=== PATIENT | female | born 1955 | race Caucasian/White ===

== ENCOUNTER → 2016-11-13 | Outpatient (CLI) | payer OTHER ==
[~2016-11-13] MED LIST: ARMO60TA PO; CINN500C7 PO; DICL75 PO; OMEG5CAP PO; PROZ20CA11 PO; TAB-TAB PO
== END ==
LOC: OLAB 09:41
PROVIDERS: ATTEND Family Medicine
DX: E03.9 Hypothyroidism, unspecified (principal)
CPT/HCPCS: 84443

== ENCOUNTER → 2017-04-16 | Outpatient (CLI) | payer OTHER ==
[~2017-04-16] MED LIST changes: +CINN500C13 PO; +DICL75TA PO; +FISH1200 PO; +LEVO137T2 PO; +MULTTAB25 PO
[2017-04-16 11:15] LABS: AUTOMATED NEUTROPHIL # 4.3 TH/MM3 (1.8-7.7); BASOPHIL # 0.1 TH/MM3 (0-0.2); EOSINOPHIL # 0.4 TH/MM3 (0-0.4); EOSINOPHIL % 5.1 % (0.0-4.0); HEMATOCRIT 38.9 % (35.0-46.0); HEMO FLAGS DIFF FINAL; LYMPH % 30.3 % (9.0-44.0); LYMPHOCYTE # 2.3 TH/MM3 (1.0-4.8); MEAN CELL VOLUME 83.7 FL (80.0-100.0); MEAN CORPUSCULAR HEMOGLOBIN 27.5 PG (27.0-34.0); MEAN CORPUSCULAR HGB CONC 32.8 % (32.0-36.0); MONO % 5.8 % (0.0-8.0); NEUT % 57.8 % (16.0-70.0); PLATELET COUNT 299 TH/MM3 (150-450); RED BLOOD COUNT 4.65 MIL/MM3 (4.00-5.30); RED CELL DISTRIBUTION WIDTH 15.2 % (11.6-17.2); WHITE BLOOD COUNT 7.5 TH/MM3 (4.0-11.0)
--- NOTE | 2017-04-16 11:17 | RADRPT ---
EXAM DATE/TIME: 04/16/2017 11:08 [facility] COMPARISON: CHEST PA & LAT, September 17, 2013, 13:38. INDICATIONS : Evaluate for pneumonia, pneumothorax, and communicable disease. Preoperative exam for acromioplasty. MEDICAL HISTORY : None. SURGICAL HISTORY : Right rotator cuff repair. ENCOUNTER: Initial ACUITY: 1 day PAIN SCORE: 0/10 LOCATION: Bilateral chest FINDINGS: PA and lateral views of the chest demonstrate the lungs to be symmetrically aerated without evidence of mass, infiltrate or effusion. The cardiomediastinal contours are unremarkable. Osseous structure s are intact. CONCLUSION: No acute disease. No significant change has occurred. Travis Pena MD on April 16, 2017 at 11:15 Board Certified Radiologist. This report was verified electronically.
[2017-04-16 11:24] LABS: PROTHROMBIN TIME - PATIENT 10.7 SEC (9.8-11.6)
[2017-04-16 11:35] LABS: BACTERIA, URINE OCC /hpf; BLOOD, URINE NEG (NEG); COMMENT (UR) CULT NOT INDICATED; CULTURE IF INDICATED CULT NOT INDICATED; GLUCOSE,URINE NEG (NEG); HYALINE CAST, URINE 2 /lpf (RARE); KETONE, URINE NEG (NEG); MUCUS URINE FEW /lpf (OCC); NITRITE,URINE NEG (NEG); PH, URINE 5.5 (5.0-8.5); SQUAMOUS EPITHELIAL CELL URINE 2 /hpf (0-5); URINE COLOR YELLOW (YELLW/STRAW)
== END ==
LOC: CPRE 09:54
PROVIDERS: ATTEND Orthopaedic Surgery
DX: Z01.812 Encounter for preprocedural laboratory examination (principal); Z01.811 Encounter for preprocedural respiratory examination; M75.121 Complete rotator cuff tear or rupture of right shoulder, not specified as traumatic
CPT/HCPCS: 36415; 71020; 81001; 85025; 85610

== ENCOUNTER → 2017-04-16 | Outpatient (CLI) | payer OTHER ==
[2017-04-16 11:44] LABS: ANION GAP 7 MEQ/L (5-15); AST (GOT) 17 U/L (15-37); BICARBONATE 25.7 MEQ/L (21.0-32.0); BLOOD UREA NITROGEN 28 MG/DL (7-18); CHLORIDE 104 MEQ/L (98-107); GLOMERULAR FILTRATION RATE 60 ML/MIN (>89); GLUCOSE,FASTING 94 MG/DL (74-99); POTASSIUM 4.4 MEQ/L (3.5-5.1); SODIUM (NA) 137 MEQ/L (136-145)
[2017-04-16 11:56] LABS: ALKALINE PHOSPHATASE 86 U/L (45-117); ALT (GPT) 30 U/L (10-53); HDL CHOLESTEROL 64.4 MG/DL (40.0-60.0); LDL CHOLESTEROL 153 MG/DL (0-99); TOTAL BILIRUBIN ADULT 0.4 MG/DL (0.2-1.0)
--- NOTE | 2017-04-17 15:37 | EKG ---
Date Performed: 04/16/2017 Time Performed: 10:25:32 PTAGE: 62 years EKG: Sinus rhythm NORMAL ECG NO PREVIOUS TRACING DOCTOR: Pedro Pablo Boyle Interpretating Date/Time 04/17/2017 15:36:43
== END ==
LOC: CLAB 10:06
PROVIDERS: ATTEND Family Medicine
DX: E03.9 Hypothyroidism, unspecified (principal); R73.01 Impaired fasting glucose; E78.2 Mixed hyperlipidemia
CPT/HCPCS: 80053; 80061; 84443; 93005

== ENCOUNTER 2017-04-24 20:28 | Emergency (ER) | payer OTHER ==
[~2017-04-24] VITALS: Ht 162.6 cm; Wt 94.0 kg
[~2017-04-24 20:28] MED LIST changes: -ACETAMINOPHEN 1000 MG/100 ML VIAL IV ONE; -BUPIVACAINE HCL PF 0.5% 30 ML VIAL NERV BLOCK ONE; -CHLORHEXIDINE GLUCONATE 2 % 1 PACK (2 CLOTHS) TOPICAL PRN; -DO NOT ADM ANY ANTICOAGULANT DRUGS PRN; -HYDROmorphone HCL 4 MG TAB PO PRN; -HYDROmorphone HCL PF 2 MG/ML VIAL IM PRN; -INSULIN HUMAN REGULAR 1,000 UNITS/10 ML VIAL SQ PRN; -LACTATED RINGER'S 1000 ML INJ 1,000 ML IV ONE; -LACTATED RINGER'S 1000 ML IV PRN; -METOPROLOL TARTRATE 25 MG TAB PO PRN; -MIDAZOLAM HCL 2 MG/2 ML VIAL ONE; -NEOSTIGMINE 3 MG/3 ML SYR IV ONE; -ONDANSETRON HCL 4 MG/2 ML VIAL IV PUSH ONE; -PHENYLEPH/NS 1000 MCG/10 ML SYR IV ONE; -PHENYLEPHRINE HCL 10 MG/ML VIAL IV ONE; -POVIDONE IODINE 5% (ANTISEPSIS KIT) 4 APPLICATIONS EACH NARE PRN; -POVIDONE IODINE 7.5% SCRUB 118 ML BOTTLE TOPICAL SCH; -PROMETHAZINE INJ 25 MG/ML VIAL IM PRN; -PROPOFOL 200 MG/20 ML AMP IV ONE; -SODIUM CHLOR 0.9% 250 ML INJ 250 ML IV ONE; -SODIUM CHLORID 0.9% 500 ML IV PRN; -VANCOMYCIN 1000 MG/NS 250 ML (for <70 kg) IV SCH; -ceFAZolin INJ 1,000 MG VIAL ONE; -ePHEDrine/NS 25 MG/5 ML SYR IV ONE; -fentaNYL CITRATE 250 MCG/5 ML AMP ONE
[2017-04-24 20:30] VITALS: BP 168/86; PULSE 99; RESP 16; TEMP 98.5; O2SAT 91
--- NOTE | 2017-04-24 20:41 | PD ---
Physical Exam Time Seen by Provider: 20:39 Narrative 62 y/o female here after having a Nerve block for rotator cuff repair today by Dr. Hernandez. She has been having cp, sob for the past several hours. Concerned for pneumothorax. Vital signs reviewed. Seen at triage desk. Awaiting bed placement. Data Data Last Documented VS Vital Signs Date Time Temp Pulse Resp B/P Pulse Ox O2 Delivery O2 Flow Rate FiO2 04/24/17 20:30 98.5 99 16 168/86 91 MDM Medical Record Reviewed: Yes Supervised Visit with CRISTIANE: Marlo Heard Apr 24, 2017 20:41
[2017-04-24] MEDS ORDERED: ONDANSETRON HCL 4 MG/2 ML VIAL IV PUSH ONE (21:15)
[2017-04-24] MEDS ORDERED: SODIUM CHLORIDE 0.9% FLUSH 10 ML FLUSH IVF PRN (21:15)
[2017-04-24] MEDS ORDERED: MORPHINE SULFATE 4 MG/ML INJ IV PUSH ONE ×2 (21:15→22:15)
[2017-04-24 21:31] LABS: AUTOMATED NEUTROPHIL # 7.1 TH/MM3 (1.8-7.7); BASOPHIL # 0.1 TH/MM3 (0-0.2); BASOPHIL % 0.5 % (0.0-2.0); EOSINOPHIL # 0.2 TH/MM3 (0-0.4); EOSINOPHIL % 2.1 % (0.0-4.0); HEMO FLAGS DIFF FINAL; LYMPH % 21.2 % (9.0-44.0); LYMPHOCYTE # 2.1 TH/MM3 (1.0-4.8); MEAN CELL VOLUME 83.8 FL (80.0-100.0); MEAN CORPUSCULAR HEMOGLOBIN 26.9 PG (27.0-34.0); MEAN CORPUSCULAR HGB CONC 32.1 % (32.0-36.0); MONO % 5.4 % (0.0-8.0); NEUT % 70.8 % (16.0-70.0); PLATELET COUNT 285 TH/MM3 (150-450); RED BLOOD COUNT 4.54 MIL/MM3 (4.00-5.30); RED CELL DISTRIBUTION WIDTH 14.9 % (11.6-17.2); WHITE BLOOD COUNT 10.1 TH/MM3 (4.0-11.0)
[2017-04-24 21:41] LABS: APTT (PATIENT) 25.9 SEC (24.3-30.1); INTERNATIONAL NORMALIZED RATIO 0.9 RATIO; PROTHROMBIN TIME - PATIENT 10.3 SEC (9.8-11.6)
--- NOTE | 2017-04-24 21:51 | RADRPT ---
EXAM DATE/TIME: 04/24/2017 21:29 [facility] COMPARISON: CHEST PA & LAT, April 16, 2017, 11:08. INDICATIONS : Patient complains of mediastinal pain and shortness of breath status post right sided rotator cuff re pair today. MEDICAL HISTORY : None. SURGICAL HISTORY : Right rotator cuff repair. ENCOUNTER: Initial ACUITY: 1 day PAIN SCORE: 5/10 LOCATION: chest FINDINGS: There is mild right base atelectasis. No infiltrate, effusion or pneumothorax. Heart size within norm al limits. CONCLUSION: Mild right base atelectasis. Maged Simons MD on April 24, 2017 at 21:49 Board Certified Radiologist. This report was verified electronically.
[2017-04-24 21:54] LABS: ANION GAP 6 MEQ/L (5-15); BICARBONATE 27.2 MEQ/L (21.0-32.0); BLOOD UREA NITROGEN 16 MG/DL (7-18); CHLORIDE 104 MEQ/L (98-107); GLOMERULAR FILTRATION RATE 63 ML/MIN (>89); SODIUM (NA) 137 MEQ/L (136-145)
[2017-04-24 21:59] LABS: CREATINE KINASE 243 U/L (26-192)
--- NOTE | 2017-04-24 22:08 | PD ---
HPI Chief Complaint: Respiratory Symptoms Time Seen by Provider: 22:08 Travel History International Travel<30 days: No Contact w/Intl Traveler<30days: No Traveled to known affect area: No History of Present Illness HPI 62-year-old female with history of hypothyroidism, presents to the emergency department today for evaluation of every onset substernal chest pain and shortness of breath. Patient underwent right rotator cuff repair today by Dr. saba. They did a subclavicular approach for the nerve block. She was discharged home following surgery. She is concerned she may have a pneumothorax. Denies any fever or chills. Pain does not radiate anywhere. No nausea or vomiting. Patient has no other symptoms to report. PFSH Past Medical History Depression: Yes Cancer: No Cardiovascular Problems: No Diabetes: No Diminished Hearing: No Endocrine: Yes Genitourinary: No Hepatitis: No Hiatal Hernia: No Immune Disorder: No Musculoskeletal: Yes (ARTHRITIS, LUMBAR PAIN, BILATERAL KNEE PAIN,ELAINE HIP PAIN) Neurologic: Yes (R ARM WITH FAINT NUMBNESS) Psychiatric: Yes (ANXIETY) Reproductive: No Respiratory: No Thyroid Disease: Yes (HYPOTHYROID ) ?: Not Menopausal: Yes Past Surgical History Abdominal Surgery: No AICD: No Body Medical Devices: URETER LEFT STENT Cardiac Surgery: No Ear Surgery: No Endocrine Surgery: No Eye Surgery: No Genitourinary Surgery: Yes (CYSTO, LEFT LITHOTRIPSY) Gynecologic Surgery: No Joint Replacement: No Oral Surgery: Yes (WISDOM) Pacemaker: No Thoracic Surgery: No Other Surgery: Yes (BILATERAL FOOT BUNION REPAIR) Social History Alcohol Use: No Tobacco Use: No Substance Use: No Allergies-Medications (Allergen,Severity, Reaction): Coded Allergies: pentazocine (Unverified Allergy, Severe, Respiratory Failure, 04/24/17) acetaminophen (Unverified Allergy, Intermediate, Itching, 04/24/17) hydrocodone (Unverified Allergy, Intermediate, SOB, 04/24/17) minocycline (Unverified Allergy, Intermediate, Rash, 04/24/17) propoxyphene (Unverified Allergy, Intermediate, Itching, 04/24/17) ampicillin (Unverified Allergy, Mild, Rash, 04/24/17) clindamycin (Unverified Adverse Reaction, Unknown, Dyspepsia, 04/24/17) ABDOMINAL PAIN Reported Meds & Prescriptions Reported Meds & Active Scripts Active Reported Levothyroxine (Levothyroxine Sodium) 137 Mcg Tab 137 Mcg PO HS Fish Oil 1200 mg ([place]-3 Fatty Acids) 1 Cap Cap 1 Cap PO DAILY Multi For Her 50+ (Multiple Vitamins W/ Minerals) 1 Tab Tab 1 Tab PO DAILY Diclofenac Sodium DR (Diclofenac Sodium) 75 Mg Tabdr 75 Mg PO BID Eql Cinnamon (Cinnamon) 500 Mg Cap 1,000 Mg PO DAILY Review of Systems Except as stated in HPI: all other systems reviewed are Neg Physical Exam Narrative GENERAL: Well-nourished female patient in no acute distress SKIN: Focused skin assessment warm/dry. HEAD: Atraumatic. Normocephalic. EYES: Pupils equal and round. No scleral icterus. No injection or drainage. ENT: No nasal bleeding or discharge. Mucous membranes pink and moist. NECK: Trachea midline. No JVD. CARDIOVASCULAR: Elevated rate and rhythm. No murmur appreciated. RESPIRATORY: No accessory muscle use. Diminished to auscultation. Breath sounds equal bilaterally. GASTROINTESTINAL: Abdomen soft, non-tender, nondistended. Hepatic and splenic margins not palpable. MUSCULOSKELETAL: No obvious deformities. No clubbing. No cyanosis. No edema. Right upper extremity sling and postop dressing in place. NEUROLOGICAL: Awake and alert. No obvious cranial nerve deficits. Motor grossly within normal limits. Normal speech. PSYCHIATRIC: Appropriate mood and affect; insight and judgment normal. Data Data Last Documented VS Vital Signs Date Time Temp Pulse Resp B/P Pulse Ox O2 Delivery O2 Flow Rate FiO2 04/24/17 22:25 96 Nasal Cannula 2 04/24/17 22:25 83 18 153/74 04/24/17 20:30 98.5 Orders Complete Blood Count With Diff (04/24/17 21:02) Basic Metabolic Panel (Bmp) (04/24/17 21:02) Act Partial Throm Time (Ptt) (04/24/17 21:02) Prothrombin Time / Inr (Pt) (04/24/17 21:02) Ckmb (Isoenzyme) Profile (04/24/17 21:02) Troponin I (04/24/17 21:02) Iv Access Insert/Monitor (04/24/17 21:02) Electrocardiogram (04/24/17 21:02) Ecg Monitoring (04/24/17 21:02) Oximetry (04/24/17 21:02) Oxygen Administration (04/24/17 21:02) Chest, Single Ap (04/24/17 21:02) Sodium Chloride 0.9% Flush (Ns Flush) (04/24/17 21:15) Morphine Inj (Morphine Inj) (04/24/17 21:15) Ondansetron Inj (Zofran Inj) (04/24/17 21:15) CKMB (04/24/17 21:15) CKMB% (04/24/17 21:15) Morphine Inj (Morphine Inj) (04/24/17 22:15) Labs Laboratory Tests Test 04/24/17 21:15 White Blood Count 10.1 TH/MM3 Red Blood Count 4.54 MIL/MM3 Hemoglobin 12.2 GM/DL Hematocrit 38.0 % Mean Corpuscular Volume 83.8 FL Mean Corpuscular Hemoglobin 26.9 PG Mean Corpuscular Hemoglobin 32.1 % Concent Red Cell Distribution Width 14.9 % Platelet Count 285 TH/MM3 Mean Platelet Volume 8.8 FL Neutrophils (%) (Auto) 70.8 % Lymphocytes (%) (Auto) 21.2 % Monocytes (%) (Auto) 5.4 % Eosinophils (%) (Auto) 2.1 % Basophils (%) (Auto) 0.5 % Neutrophils # (Auto) 7.1 TH/MM3 Lymphocytes # (Auto) 2.1 TH/MM3 Monocytes # (Auto) 0.5 TH/MM3 Eosinophils # (Auto) 0.2 TH/MM3 Basophils # (Auto) 0.1 TH/MM3 CBC Comment DIFF FINAL Differential Comment Prothrombin Time 10.3 SEC Prothromb Time International 0.9 RATIO Ratio Activated Partial 25.9 SEC Thromboplast Time Sodium Level 137 MEQ/L Potassium Level 4.0 MEQ/L Chloride Level 104 MEQ/L Carbon Dioxide Level 27.2 MEQ/L Anion Gap 6 MEQ/L Blood Urea Nitrogen 16 MG/DL Creatinine 0.91 MG/DL Estimat Glomerular Filtration 63 ML/MIN Rate Random Glucose 102 MG/DL Calcium Level 8.4 MG/DL Total Creatine Kinase 243 U/L Creatine Kinase MB 2.5 NG/ML Creatine Kinase MB % 1.0 % Troponin I LESS THAN 0.02 NG/ML MDM Medical Decision Making Medical Screen Exam Complete: Yes Emergency Medical Condition: Yes Medical Record Reviewed: Yes Differential Diagnosis Nerve block side effect versus Pneumothorax versus anxiety versus PE versus ACS Narrative Course 62-year-old female presents to the emergency department for evaluation of substernal chest pain and shortness of breath. Patient slightly elevated heart rate. Chest x-rays with mild right base atelectasis. CBC and BMP are without acute concern. Troponin is less than 0.02. Patient has been treated for pain. Upon reassessment, patient states that her shoulder is beginning to hurt more initially requesting pain medication. She also states that her breathing has improved and she would not like to move forward with CT pulmonary angiogram. She can lay back now and feels like she is taking a deep breath of air.. I have discussed this with my attending and this will be cancelled. Pt will be discharged home with strict instructions to return immediately with any acute worsening symptoms. Otherwise she is to follow-up with her orthopedic surgeon and primary care provider. She agrees with this plan of care. Diagnosis Primary Impression: Shortness of breath Additional Impression: Post-op pain Referrals: Orthopaedic Surgeon Primary Care Physician Patient Instructions: Dyspnea (ED), General Instructions Additional Instructions: Follow all postop instructions Continue pain medication as already prescribed Return immediately with any acute worsening symptoms Med/Other Pt SpecificInfo: No Change to Meds Disposition: 01 DISCHARGE HOME Condition: Stable Maggie Castillo Apr 24, 2017 22:08 Maggie Castillo Apr 24, 2017 22:08
[2017-04-24 22:11] LABS: CKMB 2.5 NG/ML (0.5-3.6)
[2017-04-24 22:25] VITALS: BP 153/74; PULSE 83; RESP 18; O2SAT 97
--- NOTE | 2017-04-25 16:07 | EKG ---
Date Performed: 04/24/2017 Time Performed: 21:01:24 PTAGE: 62 years EKG: Sinus rhythm MINIMAL VOLTAGE CRITERIA FOR LVH, CONSIDER NORMAL VARIANT BORDERLINE ECG PREVIOUS TRACING : 04/16/2017 10.25 Compared to previous tracing, slight increase in QRS voltag e, otherwise no significant change. DOCTOR: Pedro Pablo Boyle Interpretating Date/Time 04/25/2017 16:05:44
== END 2017-04-25 01:41 | disposition home or self-care (01) ==
LOC: NEPE 20:28
DX: G89.18 Other acute postprocedural pain (principal); R06.02 Shortness of breath; F41.9 Anxiety disorder, unspecified; E03.9 Hypothyroidism, unspecified
CPT/HCPCS: 71010; 80048; 82550; 82552; 84484; 85025; 85610; 85730; 93005; 96374; 96375; 96376; 99285; J2270; J2405

== ENCOUNTER → 2017-04-24 | Day surgery (SDC) | payer OTHER ==
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
[~2017-04-24] VITALS: Ht 162.6 cm; Wt 93.5 kg
[~2017-04-24] MED LIST changes: +ACETAMINOPHEN 1000 MG/100 ML VIAL IV ONE; -ARMO60TA PO; +BUPIVACAINE HCL PF 0.5% 30 ML VIAL NERV BLOCK ONE; +CHLORHEXIDINE GLUCONATE 2 % 1 PACK (2 CLOTHS) TOPICAL PRN; -CINN500C7 PO; -DICL75 PO; +DO NOT ADM ANY ANTICOAGULANT DRUGS PRN; +HYDROmorphone HCL 4 MG TAB PO PRN; +HYDROmorphone HCL PF 2 MG/ML VIAL IM PRN; +INSULIN HUMAN REGULAR 1,000 UNITS/10 ML VIAL SQ PRN; +LACTATED RINGER'S 1000 ML INJ 1,000 ML IV ONE; +LACTATED RINGER'S 1000 ML IV PRN; +METOPROLOL TARTRATE 25 MG TAB PO PRN; +MIDAZOLAM HCL 2 MG/2 ML VIAL ONE; +NEOSTIGMINE 3 MG/3 ML SYR IV ONE; -OMEG5CAP PO; +ONDANSETRON HCL 4 MG/2 ML VIAL IV PUSH ONE; +PHENYLEPH/NS 1000 MCG/10 ML SYR IV ONE; +PHENYLEPHRINE HCL 10 MG/ML VIAL IV ONE; +POVIDONE IODINE 5% (ANTISEPSIS KIT) 4 APPLICATIONS EACH NARE PRN; +POVIDONE IODINE 7.5% SCRUB 118 ML BOTTLE TOPICAL SCH; +PROMETHAZINE INJ 25 MG/ML VIAL IM PRN; +PROPOFOL 200 MG/20 ML AMP IV ONE; -PROZ20CA11 PO; +SODIUM CHLOR 0.9% 250 ML INJ 250 ML IV ONE; +SODIUM CHLORID 0.9% 500 ML IV PRN; -TAB-TAB PO; +VANCOMYCIN 1000 MG/NS 250 ML (for <70 kg) IV SCH; +ceFAZolin INJ 1,000 MG VIAL ONE; +ePHEDrine/NS 25 MG/5 ML SYR IV ONE; +fentaNYL CITRATE 250 MCG/5 ML AMP ONE
[2017-04-24 06:29] VITALS: BP 147/76; PULSE 80; RESP 18; TEMP 99.2; O2SAT 94
[2017-04-24 13:37] VITALS: BP 121/64; PULSE 89; RESP 20; TEMP 98.5; O2SAT 96
--- NOTE | 2017-04-24 23:13 | MP ---
cc: ALTAGRACIA WHITING DATE OF SURGERY 04/24/17 PREOPERATIVE DIAGNOSIS Recurrent rotator cuff tear of the right shoulder. POSTOPERATIVE DIAGNOSIS Recurrent rotator cuff tear of the right shoulder. PROCEDURE Acromioplasty right shoulder with mini open rotator cuff repair. SURGEON MD Mary ANESTHESIA General endotracheal. FORMAT Following induction of satisfactory general anesthesia by endotracheal intubation as completed per the Department of Anesthesia the patient was positioned upon the operating table in a modified beach-chair configuration. A sheet roll was established along the vertebral border of the right scapula. The right shoulder and upper extremity proper were isolated with a U drape, thereafter being prepped with Betadine solution and draped into a sterile field in the routine manner. Prior to initiation of the actual procedure the standard time-out protocol was completed. All parameters were appropriately addressed and confirmed by operating room personnel. A sharp skin incision was initiated over the superior aspect of the shoulder in line with a previous surgical scar and developed through underlying subcutaneous tissue with hemostasis maintained by electrocautery. By deepening dissection the underlying deltoid musculature was exposed along its anterior raphe. The deltoid was divided in a medial to lateral orientation facilitating entry into the subacromial space. A debridement of the undersurface of the acromion consistent with a limited acromioplasty was accomplished. Examination of the underlying tendon structure revealed a vertical full-thickness disruption of the supraspinatus tendon. The margins of the tear were sharply debrided and thereafter utilizing 0 Polydek suture in an interrupted fashion a primary repair was completed. The shoulder was thereafter carried through a passive range of motion, stability of the repair was demonstrated as well as no evidence of impingement. The wound was copiously irrigated with saline solution. Hemostasis maintained by electrocautery. The deltoid was thus repaired with interrupted 0 Polydek suture. The remaining portion of the wound was closed in layers in the routine manner. Skin margins being reapproximated with a running subcuticular 3-0 Vicryl suture over which Steri-Strips were applied. Xeroform gauze and a bulky dry sterile dressing were placed. The extremity being supported in an arm sling, anesthesia was discontinued. The patient was thereafter transferred to a hospital stretcher and returned to the recovery room in satisfactory condition having tolerated her operative procedure well. Estimated blood loss was less than 10 cc. MD ERIC Diehl/NATAN /10:12 AM /10:50 PM
== END | disposition home or self-care (01) ==
LOC: HSDC 05:45
PROVIDERS: ATTEND Orthopaedic Surgery
DX: M75.101 Unspecified rotator cuff tear or rupture of right shoulder, not specified as traumatic (principal); M25.411 Effusion, right shoulder; E03.9 Hypothyroidism, unspecified; K21.9 Gastro-esophageal reflux disease without esophagitis; M54.5 Low back pain; Z79.899 Other long term (current) drug therapy
CPT/HCPCS: 01610; 23130; 23412; 76937; J0131; J0690; J2250; J2370; J2405; J2710; J3010; J3370; J7050; J7120

== ENCOUNTER → 2017-10-13 | Outpatient (CLI) | payer OTHER ==
[~2017-10-13] MED LIST changes: -CINN500C13 PO; +CINN500C2 PO; +NEXI40CA PO
--- NOTE | 2017-10-13 11:38 | RADRPT ---
EXAM DATE/TIME: 10/13/2017 11:07 [facility] COMPARISON: CHEST SINGLE AP, April 24, 2017, 21:29. INDICATIONS : Evaluate for pneumonia, pneumothorax, and communicable diseases. Pre-op right knee arthroscopy. MEDICAL HISTORY : None. SURGICAL HISTORY : Right rotator cuff repair ENCOUNTER: Initial ACUITY: 1 day PAIN SCORE: 0/10 LOCATION: Bilateral chest FINDINGS: PA and lateral views of the chest demonstrate the lungs to be symmetrically aerated without evidence of mass, infiltrate or effusion. The cardiomediastinal contours are unremarkable. Osseous structure s are intact. CONCLUSION: No acute disease. Maged Valentin MD on October 13, 2017 at 11:35 Board Certified Radiologist. This report was verified electronically.
== END ==
LOC: CLAB 10:05
PROVIDERS: ATTEND Family Medicine
DX: R21 Rash and other nonspecific skin eruption (principal); R53.83 Other fatigue
CPT/HCPCS: 71046; 86617

== ENCOUNTER → 2017-10-13 | Outpatient (CLI) | payer OTHER ==
[2017-10-13 12:03] LABS: AUTOMATED NEUTROPHIL # 3.4 TH/MM3 (1.8-7.7); BASOPHIL # 0.1 TH/MM3 (0-0.2); BASOPHIL % 1.1 % (0.0-2.0); EOSINOPHIL # 0.3 TH/MM3 (0-0.4); EOSINOPHIL % 4.9 % (0.0-4.0); HEMATOCRIT 37.9 % (35.0-46.0); HEMOGLOBIN 12.7 GM/DL (11.6-15.3); LYMPH % 30.2 % (9.0-44.0); LYMPHOCYTE # 1.8 TH/MM3 (1.0-4.8); MEAN CELL VOLUME 82.4 FL (80.0-100.0); MEAN CORPUSCULAR HEMOGLOBIN 27.5 PG (27.0-34.0); MEAN CORPUSCULAR HGB CONC 33.4 % (32.0-36.0); MEAN PLATELET VOLUME 9.2 FL (7.0-11.0); MONO % 5.4 % (0.0-8.0); MONOCYTE # 0.3 TH/MM3 (0-0.9); NEUT % 58.4 % (16.0-70.0); PLATELET COUNT 284 TH/MM3 (150-450); RED CELL DISTRIBUTION WIDTH 15.5 % (11.6-17.2); WHITE BLOOD COUNT 5.8 TH/MM3 (4.0-11.0)
[2017-10-13 12:14] LABS: INTERNATIONAL NORMALIZED RATIO 0.9 RATIO; PROTHROMBIN TIME - PATIENT 9.6 SEC (9.8-11.6)
[2017-10-13 12:17] LABS: BILIRUBIN, URINE NEG (NEG); BLOOD, URINE NEG (NEG); GLUCOSE,URINE NEG (NEG); KETONE, URINE NEG (NEG); MUCUS URINE FEW /lpf (OCC); NITRITE,URINE NEG (NEG); SQUAMOUS EPITHELIAL CELL URINE 1 /hpf (0-5); URINE COLOR YELLOW (YELLW/STRAW); URINE LEUKOCYTE ESTERASE TRACE (NEG)
[2017-10-13 12:44] LABS: BICARBONATE 28.4 MEQ/L (21.0-32.0); CALCIUM 9.2 MG/DL (8.5-10.1); CREATININE 0.75 MG/DL (0.50-1.00)
--- NOTE | 2017-10-13 16:04 | EKG ---
Date Performed: 10/13/2017 Time Performed: 10:31:56 PTAGE: 62 years EKG: Sinus rhythm NORMAL ECG Since the prior tracing, there has been no significant change NO PREVIOUS TRACING DOCTOR: Lexx Rdz Interpretating Date/Time 10/13/2017 16:03:44
== END ==
LOC: CPRE 09:57
PROVIDERS: ATTEND Orthopaedic Surgery
DX: Z01.812 Encounter for preprocedural laboratory examination (principal); Z01.810 Encounter for preprocedural cardiovascular examination; S83.242D Other tear of medial meniscus, current injury, left knee, subsequent encounter
CPT/HCPCS: 36415; 80048; 81001; 85025; 85610; 93005

== ENCOUNTER → 2017-10-23 | Day surgery (SDC) | payer OTHER ==
--- NOTE | 2017-10-16 06:48 | MH ---
cc: ALTAGRACIA HERNANDEZ DATE OF ADMISSION: 10/23/2017 ADMISSION DIAGNOSIS Medial meniscus tear of the left knee, tricompartmental chondromalacia left knee, plica syndrome left knee, effusion left knee, synovitis left knee, pain left knee. HISTORY The patient is a 62-year-old white female who has experienced at least a 5-month history of pain involving her left knee. The onset of her symptoms occurred in June of this past year secondary to bicycle riding activities. Initially the patient conformed to modified activities thereafter utilizing Voltaren that she had been taking on a routine basis. Initially she experience a slight trend of improvement and elected to continue with conservative management while monitoring her progress. Prior to the holidays [place] in the [facility], she was walking along a number of the trails that required negotiating of steps and stairs that aggravated her left knee with a rather sharp pain being experienced medially for which she was unable to continue with ambulatory activities at that time. Upon her return home she applied ice and continued to take her Voltaren as had previously been used. Her pain persisted and became somewhat more pronounced for which she was having difficulty conforming to weightbearing activities and thus presented to the undersigned physician in the early part of September of this year. At that time her x-ray studies were without evidence of any acute bony abnormality. The patient was diagnosed as having a transient synovitis with possible internal derangement for which recommendation was made to proceed with MRI scan evaluation. Subsequent diagnostic testing in this regard identified a nondisplaced horizontal tear involving the body of the medial meniscus; tricompartmental chondral changes were associated with a medial and suprapatellar plica associated with synovitis. A small joint effusion with generalized synovitis was also noted. The patient remained symptomatic with pain about her left knee which began to interfere with all weightbearing activities. She returned to the office in follow-up disposition at that time. The findings of her scan were reviewed and treatment options discussed. The pros and cons of continuing with conservative management versus operative intervention involving arthroscopic surgery were outlined in detail. Emphasis was made regarding the fact that the decision to proceed with surgery would be left entirely to the patient's discretion. The patient indicated that, based upon previous experience that had included arthroscopic surgery of her right knee, she did not feel that continuing with conservative modalities would afford her the overall improvement that she was seeking and requested that she be scheduled for arthroscopic surgery at this time. In compliance with her wishes she has been scheduled accordingly and is being admitted in order that the above be accomplished. PAST MEDICAL HISTORY, HOSPITALIZATIONS AND SURGERIES 1. Two arthroscopic surgeries of her right knee. 2. Rotator cuff repair of the right shoulder x2. 3. Hague teeth extraction. 4. Correction of bilateral hallux valgus deformity. 5. Bilateral carpal tunnel release. 6. Bilateral trigger thumb release. 7. Insertion of a left ureteral stent, lithotripsy and medical management for renal lithiasis associated with urosepsis. MEDICAL ILLNESSES Hypothyroidism. CURRENT MEDICATIONS 1. Levofloxacin 137 mcg daily. 1. Woman's vitamin daily. 2. Fish oil 1200 mg daily. 3. Cinnamon 1000 mg daily. 4. Diclofenac 75 mg. 5. Nexium p.r.n. ALLERGIES The patient indicates drug allergies to - AMPICILLIN. MINOCIN. DARVOCET. TALWIN which have been associated with rash and itching. Talwin is also associated with respiratory depression. LORTAB has resulted in a similar side-effect although the patient has taken Dilaudid, Toradol and oxycodone for pain management without adverse side effect. CLINDAMYCIN has been associated with abdominal pain. REVIEW OF SYSTEMS HEENT: She does wear glasses. Denies headache, seizure or syncope. Occasional sinus congestion. No epistaxis. Auditory acuity intact. No tinnitus. No bleeding gums or dysphagia. RESPIRATORY: Denies cough, shortness of breath or tuberculosis. There is a positive history of pneumonia. CARDIOVASCULAR: No angina or heart disease. GI: Appetite good. Bowel movements regular. No hepatitis, gallbladder disease or ulcers. The positive history of hemorrhoids. : She has had urinary tract infection in the past, kidney stones and urosepsis. MUSCULOSKELETAL: No fractures. There is a history of bilateral trochanteric bursitis, status post trigger finger release. PSYCH: No psychiatric illness. Her remaining review of systems is unremarkable and noncontributory. FAMILY HISTORY The patient is single, both parents . Two siblings indicated to be in good health. Family history is positive for hypertension, diabetes, heart disease, Parkinson's disease, prostate cancer and tuberculosis. SOCIAL HISTORY The patient completed in degree. 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 Denies active use of tobacco, ethanol consumption on a very limited and social basis. PHYSICAL EXAMINATION VITAL SIGNS: Height 5 feet, 4 inches, weight 209 pounds. GENERAL: An alert, oriented and responsive 62-year-old white female sitting quietly upon the examination table with no obvious distress. HEAD, EYES, EARS, NOSE, AND THROAT: Pupils are equal, round and reactive to light. Extraocular movements full. Sclerae clear. External nares clear. External auditory canals clear. Dental intact. Mucous membranes pink and moist. Pharynx clear. NECK: Supple. Active range of motion without associated pain. Carotid pulse bilaterally. Trachea midline. Thyroid without enlargement. LUNGS: Clear to auscultation and percussion. No CVA tenderness. No discomfort throughout the dorsal lumbar spine. HEART: Regular rhythm. No murmur or gallop. ABDOMEN: Soft, nontender. Bowel sounds present. PELVIC: Per primary care physician. EXTREMITIES: Left knee - There is mild tenderness along the medial joint line without palpable deformity. Apprehension and compression sign negative. Limited mobility towards the extremes of flexion with pain in the 115-120 degrees range of motion. No collateral ligamentous instability. Margie test and drawer sign negative. Pivot shift negative. Sunita sign positive about the medial compartment. Straight-leg raising unremarkable at 80 degrees. Satisfactory mobility of the left hip with no associated pain. Mild antalgic gait. NEUROLOGIC: Cranial nerves II-XII grossly intact. IMPRESSION Medial meniscus tear of the left knee, tricompartmental chondromalacia left knee, plica syndrome left knee, effusion left knee, synovitis left knee, pain left knee PLAN Arthroscopic surgery and possible arthrotomy of the left knee. The nature of the planned surgical procedure, the potential complications and risks associated, the expectations of surgery and the consent form were thoroughly reviewed with the patient prior to her admission to the hospital. Jaqueline has indicated her full understanding regarding all of the above and given consent to proceed with treatment as outlined. Medical evaluation and clearance for surgery will be completed by her primary care physician, Dr. Earnest Chan. Altagracia Hernandez MD NBS/SSB /4:57 PM 6:20 AM
[~2017-10-23] VITALS: Ht 162.6 cm; Wt 95.8 kg
[~2017-10-23] MED LIST changes: +*RESP: ALBUTEROL 2.5 MG/3 ML NEB (PRN) PERIprocedural Use ONLY NEB ONE; +*morphine SULFATE 4 MG/ML PERIprocedure ONLY ONE; +CHLORHEXIDINE GLUCONATE 2 % 1 PACK (2 CLOTHS) TOPICAL PRN; +DO NOT ADM ANY ANTICOAGULANT DRUGS PRN; +HYDROmorphone HCL PF 2 MG/ML VIAL IM PRN; +INSULIN HUMAN REGULAR 1,000 UNITS/10 ML VIAL SQ PRN; +KETOROLAC TROMETHAMINE 10 MG TAB PO PRN; +KETOROLAC TROMETHAMINE 30 MG/ML (IVP) VIAL IV PUSH ONE; +LACTATED RINGER'S 1000 ML IV PRN; +LIDOCAINE HCL 1% PF 5 ML SYRINGE OTHER ONE; +LIDOCAINE HCL 2% 50 ML VIAL ONE; +METOPROLOL TARTRATE 25 MG TAB PO PRN; +MIDAZOLAM HCL 2 MG/2 ML VIAL ONE; +ONDANSETRON HCL 4 MG/2 ML VIAL IV ONE; +POVIDONE IODINE 5% (ANTISEPSIS KIT) 4 APPLICATIONS EACH NARE PRN; +POVIDONE IODINE 7.5% SCRUB 118 ML BOTTLE TOPICAL SCH; +PROMETHAZINE INJ 25 MG/ML VIAL IM PRN; +PROPOFOL 200 MG/20 ML AMP IV ONE; +SODIUM CHLORID 0.9% 500 ML IV PRN; +TRIAMCINOLONE ACETONIDE 40 MG/ML VIAL ONE; +VANCOMYCIN 1000 MG/NS 250 ML (for <70 kg) IV SCH; +ePHEDrine/NS 25 MG/5 ML SYRINGE IV ONE
[2017-10-23 09:26] VITALS: BP 133/68; PULSE 80; RESP 18; TEMP 97.6; O2SAT 95
--- NOTE | 2017-10-23 16:47 | MP ---
cc: ALTAGRACIA WHITING DATE OF SURGERY: 10/23/2017 PREOPERATIVE DIAGNOSIS: 1. Medial meniscus tear of the left knee 2. tricompartmental chondromalacia left knee 3. plica syndrome left knee 4. effusion left knee 5. synovitis left knee 6. pain of the left knee POSTOPERATIVE DIAGNOSIS 1. Tricompartmental chondromalacia of the left knee 2. plica syndrome left knee 3. synovitis left knee and pain in the left knee. PROCEDURE: 1. Chondroplasty medial femoral condyle left knee with shaving and debridement patellofemoral joint 2. Resection of synovial plica. SURGEON Mary ANESTHESIA General by LMA FORMAT: Following induction of satisfactory general anesthesia by LMA insertion as completed per the Department of Anesthesia examination of the left knee did reveal a satisfactory range of motion with no appreciable ligamentous instability. The extremity proper was positioned into the press assistant and feeder knee reis prepped with Betadine solution and draped into a sterile field in the routine manner. Prior to initiation of the actual procedure the standard time-out protocol was completed. All parameters were appropriately addressed and confirmed by operating room personnel. Arthroscopic instrumentation was introduced through stab wound utilizing cannula with sharp and blunt trocars. The inflow irrigation by way of the medial suprapatellar portal the arthroscope through a lateral parapatellar portal and a probe through a medial parapatellar portal. Examination of the suprapatellar pouch revealed reactive synovitis with a prominent synovial plica. There was obvious articular irregularity involving the patellofemoral joint being more pronounced on the patellar side consistent with localized chondromalacia. Within the medial compartment degenerative changes were appreciated about the medial femoral condyle consistent with additional chondromalacia involvement. The medial meniscus actually appeared to be intact without evidence of specific tear or internal derangement. The anterior cruciate ligament was identified and noted to be intact. Within the lateral compartment. The lateral meniscus was without evidence of internal derangement, minimal articular irregularity involving the articular surface was noted. Attention was redirected to the medial compartment utilizing a 3.8 aggressive resector, a chondroplasty of the medial femoral condyle was accomplished. Limited debridement within the articular sounds within the intercondylar region of reactive synovium. The shaver was thereafter oriented into the suprapatellar region where the previously identified synovial plica was resected in a subtotal manner. Additional shaving debridement of the patellofemoral articulation was accomplished. Upon completion of same the joint space was thoroughly lavaged and suctioned dry and intra-articular Kenalog lidocaine injection was completed, portal sites reapproximated with Steri-Strips over which Xeroform gauze and a bulky dry sterile dressing were placed. Anesthesia was discontinued and the patient thus transferred to a hospital stretcher and returned to the recovery room in satisfactory condition having tolerated her operative procedure well. Estimated blood loss was approximately 10 cc. MD ERIC Diehl/ /8:00 AM /4:38 PM
== END | disposition home or self-care (01) ==
LOC: HSDC 05:17
PROVIDERS: ATTEND Orthopaedic Surgery
DX: M67.52 Plica syndrome, left knee (principal); M94.262 Chondromalacia, left knee; M65.9 Synovitis and tenosynovitis, unspecified; E03.9 Hypothyroidism, unspecified; Z88.0 Allergy status to penicillin; Z88.5 Allergy status to narcotic agent; Z83.3 Family history of diabetes mellitus
CPT/HCPCS: 01400; 29875; J1885; J2250; J2270; J2405; J3010; J3301; J3370; J7050; J7120; J7613

== ENCOUNTER → 2017-11-17 | Day surgery (SDC) | payer OTHER ==
[~2017-11-17] VITALS: Ht 165.1 cm; Wt 95.9 kg
[~2017-11-17] MED LIST changes: -*RESP: ALBUTEROL 2.5 MG/3 ML NEB (PRN) PERIprocedural Use ONLY NEB ONE; +APREPITANT 40 MG CAP ONE; +BACITRACIN TOP OINT 15 GM TUBE ONE; +BUPIVACAINE HCL PF 0.5% 30 ML VIAL ONE; +DEXAMETHASONE SOD PHOS 4 MG/ML VIAL IV ONE; +FAMOTIDINE 20 MG/2 ML VIAL ONE; -HYDROmorphone HCL PF 2 MG/ML VIAL IM PRN; -INSULIN HUMAN REGULAR 1,000 UNITS/10 ML VIAL SQ PRN; -KETOROLAC TROMETHAMINE 10 MG TAB PO PRN; -KETOROLAC TROMETHAMINE 30 MG/ML (IVP) VIAL IV PUSH ONE; +LACTATED RINGER'S 1000 ML INJ 1,000 ML IV SCH; +NEOMYCIN/POLYMYXIN 1 ML G.U. IRRIGANT ONE; +ONDANSETRON HCL 4 MG/2 ML VIAL IV PUSH PRN; -POVIDONE IODINE 7.5% SCRUB 118 ML BOTTLE TOPICAL SCH; -PROMETHAZINE INJ 25 MG/ML VIAL IM PRN; +VANCOMYCIN 1 GM/200 ML PREMIX IV SCH; -VANCOMYCIN 1000 MG/NS 250 ML (for <70 kg) IV SCH
--- NOTE | 2017-11-17 09:39 | MP ---
cc: Tari Pham MD DATE OF OPERATION: 11/17/2017 PREOPERATIVE DIAGNOSIS: Left ring finger trigger finger. POSTOPERATIVE DIAGNOSIS: Left ring finger trigger finger. PROCEDURE: Left ring finger trigger release. SURGEON: Tari Pham MD ANESTHESIA: General and local. TOURNIQUET TIME: 11 minutes at 200 mmHg. INDICATION FOR PROCEDURE: Jaqueline Hills is a 62-year-old right-hand dominant female who reports persistent triggering over the left ring finger with short-term improvement after corticosteroid injection. She elected to proceed with surgical intervention. Risks were explained including, but not limited to wound complications, infection, stiffness, pain, need for additional surgeries, and she elects to proceed. DESCRIPTION OF PROCEDURE: Patient was identified in the preoperative holding area and the correct extremity was marked. Patient was taken to the operating room, where anesthesia was induced. Left upper extremity was prepped and draped in normal sterile fashion. Tourniquet was inflated to 200 mmHg for 11 minutes. A longitudinal incision was made over the A1 sandy of the left ring finger. Care was taken to protect the digital nerves and digital arteries. The A1 sandy was then found and incised. There was thickening of the tendons, but after release of the A1 sandy, there was good gliding with flexion and extension of the finger. The area was irrigated, tourniquet was released. There was less than 2 second capillary refill to the finger. The wound was closed with nylon. The patient was placed in a soft dressing and awakened from anesthesia without any complications. Approximately 6 mL of 2% lidocaine with no epinephrine was used to perform local anesthesia over the hand. Tari Pham MD SEH/TI , 09:06 AM , 09:39 AM MAURICE
[2017-11-17 10:02] VITALS: BP 142/80; PULSE 94; RESP 20; TEMP 97.9; O2SAT 95
== END | disposition home or self-care (01) ==
LOC: HSDC 05:11
PROVIDERS: ATTEND Orthopaedic Surgery
DX: M65.342 Trigger finger, left ring finger (principal)
CPT/HCPCS: 01810; 26055; J1100; J2250; J2270; J2405; J3010; J3370; J7120; J8501; J3301